=== PATIENT | male | born 1985 | race Caucasian/White ===

== ENCOUNTER 2016-10-21 00:16 | Emergency (ER) | payer OTHER ==
[2016-10-21] MEDS ORDERED: NS 1,000 ML IV ONE (00:45)
[2016-10-21] MEDS ORDERED: ACETAMINOPHEN 500 MG TAB PO ONE (00:45)
[2016-10-21] MEDS ORDERED: ACETAMINOPHEN 500 MG TAB ONE (00:46)
[2016-10-21 01:34] LABS: % IMMATURE GRANULYOCYTES 0.3 % (0.0-1.1); ABSOLUTE IMMATURE GRANULOCYTES 0.03 10^3/uL (0.00-0.10); ADD DIFF? NO; ADD MORPH? NO; ADD SCAN? NO; ATYPICAL LYMPHOCYTE FLAG 0 (0-99); FRAGMENT RBC FLAG 0 (0-99); HEMATOCRIT 42.5 % (40.0-51.0); HEMOGLOBIN 14.7 g/dL (13.7-17.5); LEFT SHIFT FLG 0 (0-99); LIPEMIA HEMOLYSIS FLAG 90 (0-99); MEAN CELL HEMOGLOBIN 30.5 pg (27.9-34.1); MEAN CELL HEMOGLOBIN CONCENTR. 34.6 g/dL (32.4-36.7); MEAN CELL VOLUME 88.2 fL (81.5-99.8); MEAN PLATELET VOLUME 11.5 fL (8.7-11.7); PLATELET CLUMPS FLAG 10 (0-99); PLATELET COUNT 177 10^3/uL (150-400); RED BLOOD CELL COUNT 4.82 10^6/uL (4.40-6.38); RED CELL DISTRIBUTION WIDTH 11.8 % (11.5-15.2)
[2016-10-21 01:41] LABS: ANION GAP 14 mEq/L (8-16); CALCIUM 9.4 mg/dL (8.5-10.4); CARBON DIOXIDE 19 mEq/l (22-31); CHLORIDE 105 mEq/L (97-110); CREATININE 1.1 mg/dL (0.7-1.3); GLOMERULAR FILTRATION RATE > 60; GLUCOSE 108 mg/dL (70-100); POTASSIUM 4.1 mEq/L (3.5-5.2); SODIUM 138 mEq/L (134-144)
[2016-10-21 01:55] VITALS: TEMP 100.2
--- NOTE | 2016-10-21 02:01 | EDPHY ---
H & P Stated Complaint: c/o fever/bodyaches/cough/sorethroat x 2 day Time Seen by Provider: 10/21/16 01:29 HPI/ROS: HPI The patient presents with fever which began yesterday as high as 103.8 at home. The fever is associated with sore throat, mild cough, diffuse myalgias, nausea. He has been taking ibuprofen at home but continues to be febrile. He denies any sick contacts. He returned from a 3 week trip to [facility] on September 29. He took chloroquine for malaria prophylaxis though did not finish it when he returned back to the [place] He denies any rash, any sick contacts.. He believes he received yellow fever and typhoid vaccines. REVIEW OF SYSTEMS Constitutional: Positive for fevers Eyes: No discharge. ENT: No sore throat. Cardiovascular: No chest pain, no palpitations. Respiratory: No cough, no shortness of breath. Gastrointestinal: No abdominal pain, no vomiting. Genitourinary: No hematuria. Musculoskeletal: No back pain. Skin: No rashes. Neurological: No headache. PMHx: Healthy Soc Hx: Recent visit to [facility] PHYSICAL General Appearance: Alert, no distress Eyes: Pupils equal and round no pallor or injection ENT, Mouth: Mucous membranes moist Respiratory: There are no retractions, lungs are clear to auscultation Cardiovascular: Regular rate and rhythm Gastrointestinal: Abdomen is soft and non-tender, no masses, bowel sounds normal Neurological: A&O, moves all extremities Skin: Warm and dry, no rashes Musculoskeletal: Neck is supple non tender Extremities: symmetrical, full range of motion Psychiatric: Patient is oriented X 3, there is no agitation Source: Patient Exam Limitations: No limitations - Medical/Surgical History Hx Asthma: No Hx Chronic Respiratory Disease: No Hx Diabetes: No Hx Cardiac Disease: No Hx Renal Disease: No Hx Cirrhosis: No Hx Alcoholism: No Hx HIV/AIDS: No Hx Splenectomy or Spleen Trauma: No Other PMH: none - Social History Smoking Status: Never smoked Constitutional: Initial Vital Signs Temperature (C) 39.5 C H 10/21/16 00:21 Heart Rate 95 10/21/16 00:21 Respiratory Rate 16 10/21/16 00:21 Blood Pressure 136/79 H 10/21/16 00:21 O2 Sat (%) 96 10/21/16 00:21 O2 Delivery Mode Room Air Allergies/Adverse Reactions: No Known Allergies Allergy (Unverified 10/21/16 00:24) Home Medications: Medication Instructions Recorded Claritin 10/21/16 IBUPROFEN 10/21/16 Medical Decision Making Differential Diagnosis: This is a 31-year-old male, returned traveler's from [place] visiting [facility], [facility], the [facility] who presents with 1 day of high fever. He has myalgias, malaise, sore throat, cough, nausea. He has a nonfocal physical exam. Differential diagnosis includes strep pharyngitis, viral pharyngitis, malaria is a consideration as is dengue. Patient has received vaccinations for yellow fever and typhoid, making this less likely. In the emergency room, patient received IV fluids and Tylenol for his fever with improvement in his symptoms. Labs were checked and were unremarkable except for a rapid strep which was positive. I feel he likely has strep pharyngitis as the cause of all of his symptoms. He was treated here with penicillin IM and Decadron. - Data Points Laboratory Results: Laboratory Results 10/21/16 00:50 10/21/16 00:50 10/21/16 10/21/16 10/21/16 01:50 00:50 00:50 WBC RBC Hgb Hct MCV MCH MCHC RDW Plt Count MPV Neut % (Auto) Lymph % (Auto) Weston % (Auto) Eos % (Auto) Baso % (Auto) Nucleat RBC Rel Count Absolute Neuts (auto) Absolute Lymphs (auto) Absolute Monos (auto) Absolute Eos (auto) Absolute Basos (auto) Absolute Nucleated RBC Immature Gran % Immature Gran # Sodium 138 mEq/L mEq/L (134-144) Potassium 4.1 mEq/L mEq/L (3.5-5.2) Chloride 105 mEq/L mEq/L (97-110) Carbon Dioxide 19 mEq/l L mEq/l (22-31) Anion Gap 14 mEq/L mEq/L (8-16) BUN 11 mg/dL mg/dL (7-23) Creatinine 1.1 mg/dL mg/dL (0.7-1.3) Estimated GFR > 60 Glucose 108 mg/dL H mg/dL (70-100) Calcium 9.4 mg/dL mg/dL (8.5-10.4) Malaria Smear Pending Malaria Sm Path Review Pending Group A Strep Screen POSITIVE H (NEGATIVE) 10/21/16 00:50 WBC 9.57 10^3/uL H 10^3/uL (3.80-9.50) RBC 4.82 10^6/uL 10^6/uL (4.40-6.38) Hgb 14.7 g/dL g/dL (13.7-17.5) Hct 42.5 % % (40.0-51.0) MCV 88.2 fL fL (81.5-99.8) MCH 30.5 pg pg (27.9-34.1) MCHC 34.6 g/dL g/dL (32.4-36.7) RDW 11.8 % % (11.5-15.2) Plt Count 177 10^3/uL 10^3/uL (150-400) MPV 11.5 fL fL (8.7-11.7) Neut % (Auto) 75.3 % H % (39.3-74.2) Lymph % (Auto) 13.9 % L % (15.0-45.0) Weston % (Auto) 10.1 % % (4.5-13.0) Eos % (Auto) 0.0 % L % (0.6-7.6) Baso % (Auto) 0.4 % % (0.3-1.7) Nucleat RBC Rel Count 0.0 % % (0.0-0.2) Absolute Neuts (auto) 7.20 10^3/uL H 10^3/uL (1.70-6.50) Absolute Lymphs (auto) 1.33 10^3/uL 10^3/uL (1.00-3.00) Absolute Monos (auto) 0.97 10^3/uL H 10^3/uL (0.30-0.80) Absolute Eos (auto) 0.00 10^3/uL L 10^3/uL (0.03-0.40) Absolute Basos (auto) 0.04 10^3/uL 10^3/uL (0.02-0.10) Absolute Nucleated RBC 0.00 10^3/uL 10^3/uL (0-0.01) Immature Gran % 0.3 % % (0.0-1.1) Immature Gran # 0.03 10^3/uL 10^3/uL (0.00-0.10) Sodium Potassium Chloride Carbon Dioxide Anion Gap BUN Creatinine Estimated GFR Glucose Calcium Malaria Smear Malaria Sm Path Review Group A Strep Screen Medications Given: Discontinued Medications Acetaminophen (Tylenol) 1,000 mg PO EDNOW ONE Stop: 10/21/16 00:46 Last Admin: 10/21/16 01:12 Dose: 1,000 mg Dexamethasone (Decadron) 8 mg PO EDNOW ONE Stop: 10/21/16 02:31 Last Admin: 10/21/16 02:59 Dose: 8 mg Sodium Chloride (Ns) 1,000 mls @ 0 mls/hr IV ONCE ONE PRN Reason: Wide Open Stop: 10/21/16 00:46 Last Admin: 10/21/16 00:45 Dose: 1,000 mls Penicillin G Benzathine (Bicillin L-A) 1,200,000 unit IM EDNOW ONE PRN Reason: Protocol Stop: 10/21/16 02:31 Last Admin: 10/21/16 02:59 Dose: 1,200,000 unit Departure - Departure Disposition: Home, Routine, Self-Care Clinical Impression: Strep pharyngitis Condition: Good Instructions: Strep Throat (ED) Additional Instructions: You can take ibuprofen 400 mg with acetaminophen 1000 mg every 6 hours as needed for fever and pain. Please return to the ER if your worse in any way. Referrals: S[facility] HUMPHRIES [Other] - As per Instructions
[2016-10-21] MEDS ORDERED: DEXAMETHASONE 4 MG TAB PO ONE (02:30)
[2016-10-21] MEDS ORDERED: BICILLIN L-A 1200000 UNIT/2 ML SYRINGE IM ONE (02:30)
[2016-10-21 03:08] VITALS: BP 109/59; PULSE 84; RESP 20; O2SAT 92
[2016-10-21 03:21] LABS: MALARIAL PREP NONE SEEN (NONE SEEN)
== END 2016-10-21 03:08 | disposition home or self-care (01) ==
DX: J02.0 Streptococcal pharyngitis (principal)
CPT/HCPCS: J0561